=== PATIENT | male | born 1965 | race Caucasian/White ===

== ENCOUNTER 2023-11-22 13:13 | Outpatient (CLI) | payer MEDICARE, SELFPAY ==
--- NOTE | ~2023-11-22 | XR_ITS ---
XR abdomen/kub 1V DATE: 11/22/2023 13:43 INDICATION: History of kidney stones TECHNIQUE: AP projection, 2 views COMPARISON: None FINDINGS: At least 4 small calcifications overlie each kidney, suggesting bilateral nephrolithiasis. The psoas shadows are intact. No visceromegaly is noted. There is a prominent amount of fecal material in the cecum, a descending and transverse colon, distal descending colon. No bowel obstruction is noted. Included skeletal structures are unremarkable. IMPRESSION: Bilateral nephrolithiasis Prominent amount of fecal material in the colon; no bowel obstruction Reviewed, dictated and finalized at [facility]. Reviewed, dictated and finalized at [facility].
== END 2023-11-22 13:14 | disposition home or self-care (01) ==
PROVIDERS: PCP Family Medicine; Visit Provider Physician Assistant
DX: N20.0 Calculus of kidney (principal); Z87.442 Personal history of urinary calculi
CPT/HCPCS: 74018